=== PATIENT | male | born 1990 | race Caucasian/White ===

== ENCOUNTER 2022-10-17 09:13 | Emergency (ER) | payer BC ==
[2022-10-17 09:27] VITALS: BP 142/65
--- NOTE | 2022-10-17 09:28 | ED Physician Documentation ---
PD HPI OPHTHO - Stated complaint Stated Complaint: RT EYE REDNESS - Chief complaint Chief Complaint: Heent - History obtained from History obtained from: Patient - History of Present Illness Timing - onset: How many days ago (3-4) Timing - duration: Days (3-4) Timing - details: Gradual onset, Still present Location: Right Associated symptoms: Redness, Tearing, Matting. No: Photophobia, Double vision, Loss of vision Contributing factors: Exposed to conjunctivitis (his 3 year old had some eye redness as did his mother (who also cares for the child).) Similar symptoms before: Has not had sx before Review of Systems Constitutional: denies: Fever, Chills Eyes: reports: Discharge, Irritation. denies: Photophobia Nose: reports: Rhinorrhea / runny nose, Sinus pressure / pain. denies: Congestion Throat: denies: Sore throat Respiratory: denies: Cough Skin: denies: Rash, Lesions PD PAST MEDICAL HISTORY - Past Medical History Cardiovascular: None Respiratory: None HEENT: None - Present Medications Home Medications: Ambulatory Orders Medication Instructions Recorded Confirmed Doxycycline Hyclate 100 mg PO BID 10 Days #5 cap 10/17/22 Moxifloxacin HCl [Vigamox] 3 drops RIGHTEYE QID 5 Days #3 ml 10/17/22 - Allergies Allergies/Adverse Reactions: Allergies Allergy/AdvReac Type Severity Reaction Status Date / Time No Known Drug Allergies Allergy Verified 10/17/22 09:25 PD ED PE NORMAL - Vitals Vital signs reviewed: Yes - General General: Alert and oriented X 3, No acute distress, Well developed/nourished - HEENT HEENT: PERRL, EOMI, Other (left eye is normal appearing. Right eye with conjunctival redness more to lower eye. No lid redness nor swelling. There is some matting in lash bases. ) PD ED PE EXPANDED - Eyes Eyes: Anterior chambers clear, Normal fundi. No: Corneal abrasion, Fluorescein uptake Results - Vitals Vitals: Vital Signs - 24 hr 10/17/22 09:18 Temperature 36.6 C Heart Rate 74 Respiratory 16 Rate Blood Pressure 142/65 H O2 Saturation 100 Oxygen O2 Source Room air PD Medical Decision Making - ED course Complexity details: considered differential (has right conjunctivitis symptoms. However has some sinus symptoms of pressure and some congestion. His mother was seen and got Rx abx eye drops but also oral abx. (Moxi and Doxy). COnsider viral with several ulises having it, versus bacterial for same reason and for patient maricruz since just one eye.), d/w patient Departure - Departure Disposition: 01 Home, Self Care Clinical Impression: Conjunctivitis Qualifiers: Conjunctivitis type: acute Acute conjunctivitis type: bacterial Laterality: right Qualified Code(s): H10.31 - Unspecified acute conjunctivitis, right eye Condition: Stable Record reviewed to determine appropriate education?: Yes Instructions: ED Conjunctivitis Bacterial Prescriptions: Doxycycline Hyclate 100 mg PO BID 10 Days #5 cap Moxifloxacin HCl [Vigamox] 3 drops RIGHTEYE QID 5 Days #3 ml Comments: We can use the moxifloxacin eyedrops 4 times daily for the next 3 to 5 days to fully cleared. Doxycycline antibiotic orally as well to help with any infection in the sinuses or bronchioles. This should improve over the next couple of days. I sent your prescriptions to [facility]. Discharge Date/Time: 10/17/22 09:51
== END 2022-10-17 09:51 | disposition home or self-care (01) ==
LOC: ED 09:13
DX: H10.31 Unspecified acute conjunctivitis, right eye (principal)
CPT/HCPCS: 99281; 99283